=== PATIENT | male | born 1985 | race Caucasian/White ===

== ENCOUNTER 2018-11-10 17:44 | Emergency (ER) | payer OTHER ==
[~2018-11-10] VITALS: Ht 175.3 cm; Wt 84.8 kg
[2018-11-10 18:23] VITALS: BP 132/86; Ht 175.3 cm; Wt 84.8 kg
== END 2018-11-10 21:38 | disposition home or self-care (01) ==
LOC: ED 17:44
DX: S61.011D Laceration without foreign body of right thumb without damage to nail, subsequent encounter (principal); X58.XXXD Exposure to other specified factors, subsequent encounter